=== PATIENT | female | born 1960 | race Caucasian/White ===

== ENCOUNTER 2021-03-01 10:48 | Emergency (ER) | payer MEDICAID, OTHER ==
[~2021-03-01] VITALS: Ht 172.7 cm; Wt 54.1 kg
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
[2021-03-01] MEDS ORDERED: LIDOCAINE-MPF 1%, 5ML ONE (12:21)
[2021-03-01] MEDS ORDERED: KETOROLAC 30 MG/1 ML ONE (12:25)
[2021-03-01 12:28] VITALS: BP 128/65
--- NOTE | 2021-03-01 12:28 | NUR ---
ERP DR. SANCHEZ AT BEDSIDE FOR REDUCTION. PT TIANNA WELL.
[2021-03-01] MEDS ORDERED: KETOROLAC 30 MG/1 ML IVPush ONE (12:30)
[2021-03-01] MEDS ORDERED: LIDOCAINE 1%, 10ML INFIL ONE (12:30)
[2021-03-01] MEDS ORDERED: LIDOCAINE-MPF 1%, 2ML INFIL ONE (12:30)
--- NOTE | 2021-03-01 12:39 | NUR ---
PER ERP DR. SANCHEZ NO NEED FOR REPEAT XR OF WRIST TO ENSURE PLACEMENT.
== END 2021-03-01 13:08 | disposition home or self-care (01) ==
LOC: ED 12:41
DX: S52.571A Other intraarticular fracture of lower end of right radius, initial encounter for closed fracture (principal); S52.611A Displaced fracture of right ulna styloid process, initial encounter for closed fracture; F17.200 Nicotine dependence, unspecified, uncomplicated; V89.2XXA Person injured in unspecified motor-vehicle accident, traffic, initial encounter; Y93.89 Activity, other specified; Y92.410 Unspecified street and highway as the place of occurrence of the external cause; Y99.8 Other external cause status
CPT/HCPCS: 25605; 70450; 73110; 96374; 99284; J1885; 29515

== ENCOUNTER 2021-03-06 11:50 | Emergency (ER) | payer MEDICAID ==
[~2021-03-06] VITALS: Ht 172.7 cm; Wt 83.8 kg
[2021-03-06 12:09] VITALS: BP 129/77
--- NOTE | 2021-03-06 14:39 | NUR ---
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
--- NOTE | 2021-03-06 15:18 | NUR ---
DISCHARGE INSTRUCTIONS REVIEWED WITH PT. ALL QUESTIONS ANSWERED AT THIS TIME.
== END 2021-03-06 15:22 | disposition home or self-care (01) ==
LOC: ED 15:15
DX: S52.571A Other intraarticular fracture of lower end of right radius, initial encounter for closed fracture (principal); F17.210 Nicotine dependence, cigarettes, uncomplicated; J44.9 Chronic obstructive pulmonary disease, unspecified; W18.30XA Fall on same level, unspecified, initial encounter; Y93.89 Activity, other specified; Y92.410 Unspecified street and highway as the place of occurrence of the external cause; Y99.8 Other external cause status
CPT/HCPCS: 99282